=== PATIENT | female | born 1955 | race Caucasian/White ===

== ENCOUNTER → 2016-08-04 | Day surgery (SDC) | payer OTHER ==
[~2016-08-04] MED LIST: ADVAIR; ALBUTEROL17 GM; ALBUTEROL17 GM INH; CALCIUM 600 +1 EAC5 PO; CELEXA PO; CHOLECALCIFEROL 800 UNIT; CIPRO PO; CLARITIN10 M2 PO; FLEXERIL10 M1 PO; HYDROCHLOROTH12.5 M1 PO; IBUPROFEN800 MG PO; LASIX; LASIX PO; LEVOTHYROXINE75 MC1 PO; MEDROL4 MG/DOSE- PO; MOBIC15 MG DOB; MULTI-VITAMIN1 EAC1 PO; NORCO 5/325 TAB1 TAB PO; POTASSIUM99 M1 PO; PREMARIN; PREMARIN0.625 MG PO; PROMETHAZINE HC25 MG PO; PROZAC40 M1 PO; ROCEPHIN IV; SINGULAIR PO; SUBOXONE; SYMBICORT INH; VICODIN 5/1 TAB 5/50 PO; VISTARIL PO
--- NOTE | ~2016-08-04 | OR ---
Unit #: [id number] #: [id number] Patient: MONALISA MORSE [id number] [address] [place], [place] [address] [id number] MR#: [id number] NAME: MONALISA MORSE ROOM: Date of Procedure: 08/04/2016 Admission Date: 08/04/2016 Surgeon: Arash Young M.D. : 1955 Attending Physician: Arash Young M.D. Primary Care Physician: Duyen Clemons M.D. OPERATIVE REPORT PREOPERATIVE DIAGNOSIS Colorectal cancer screening in an average-risk patient. PROCEDURE PERFORMED Colonoscopy up to cecum and terminal ileum with excellent preparation and good visualization. POSTOPERATIVE DIAGNOSES Completely normal examination up to cecum and terminal ileum. The quality of the prep was excellent. No polyps, diverticula, or hemorrhoids were seen. RECOMMENDATIONS Repeat colonoscopy in 10 years. SEDATION USED MAC. DESCRIPTION OF PROCEDURE Following detailed explanation of the potential risks and complications of a colonoscopy, namely perforation, bleeding, and complications related to sedation, the patient was brought to GI lab and laid in the left lateral decubitus position. A digital rectal examination was performed, which was normal. Lubricated tip of the Olympus video colonoscope was inserted through the anus and advanced under direct vision. The scope was advanced past rectosigmoid into descending colon. No diverticula were seen in this area. The scope tip was then navigated all the way up to cecum with visualization of the ileocecal valve and the appendiceal orifice. Preparation was excellent with good visualization and photodocumentation was obtained. Last several inches of the terminal ileum were also visualized after intubation of the ileocecal valve and appeared normal. Successive segments of the colonic mucosa were examined upon withdrawal and appeared unremarkable. There being no polyps, mass lesions, AVMs, or diverticula. The patient did not have any hemorrhoids at the anal verge. The scope was then withdrawn and the patient returned to recovery area. She tolerated the procedure without any postprocedure complications. Dictated by... Arash Young M.D. Unit #: [id number] #: [id number] Patient: MONALISA MORSE KERRY/meggan TD: 08/04/2016 11:14 JOB #: [id number] OPERATIVE REPORT Page 1 of 1 X Arash Young MD PROCEDURE OPERATIVE NOTE
== END | disposition home or self-care (01) ==
LOC: COPS 08:17
DX: Z12.11 Encounter for screening for malignant neoplasm of colon (principal); J45.909 Unspecified asthma, uncomplicated; E03.9 Hypothyroidism, unspecified; Z88.8 Allergy status to other drugs, medicaments and biological substances; Z96.651 Presence of right artificial knee joint; Z98.84 Bariatric surgery status; Z90.710 Acquired absence of both cervix and uterus; Z98.890 Other specified postprocedural states; Z79.51 Long term (current) use of inhaled steroids; Z79.1 Long term (current) use of non-steroidal anti-inflammatories (NSAID); Z79.899 Other long term (current) drug therapy
CPT/HCPCS: J2250